=== PATIENT | female | born 1955 | race Caucasian/White ===

== ENCOUNTER → 2024-07-09 | Outpatient (BNVA) | payer MEDICARE, BC, SELFPAY | END | disposition home or self-care (01) | PROVIDERS: PCP Nurse Practitioner Family; Referring Provider Nurse Practitioner Family; Visit Provider Urology | DX: N39.3 Stress incontinence (female) (male) (principal); R39.198 Other difficulties with micturition; Z87.442 Personal history of urinary calculi; Z80.3 Family history of malignant neoplasm of breast | CPT/HCPCS: 81003; 99212; G0463 ==

== ENCOUNTER 2024-08-05 10:10 | Day surgery (SDC) | payer MEDICARE, BC, SELFPAY ==
--- NOTE | 2024-08-04 06:49 | EKG_ITS ---
[facility] Test Date: 2024-08-04 Pat Name: IRAIDA BERNABE Department: Room: - Gender: Female Renal Medicine Physician: STUDENT : 1955 Requested By: Trey Bear Order Number: [id number] Reading MD: Trey Bear Measurements Intervals [place] Rate: 58 P: 160 TX: 145 QRS: 182 QRSD: 102 T: 170 QT: 402 QTc: 397 Interpretive Statements SINUS BRADYCARDIA ARM LEADS REVERSED Compared to ECG 09/25/2023 13:32:07 Sinus rhythm no longer present /store/S0/[id number]
[2024-08-04 11:23] VITALS: BMI 41.1
[2024-08-04 12:20] LABS: Alanine Aminotransferase 31 U/L (10-49); Albumin, Serum 4.4 gm/dL (3.4-4.8); Albumin/Globulin Ratio 1.3 (1.2-2.2); Alkaline Phosphatase 94 U/L (46-116); Anion Gap 8 (7-16); Aspartate Amino Transferase 37 U/L (0-34); BUN/Creatinine Ratio 23 Ratio (12-20); Bilirubin,Total 0.6 mg/dL (0.3-1.2); Blood Urea Nitrogen 18 mg/dL (9-23); Calcium 10.3 mg/dL (8.3-10.6); Calcium (Corrected) 10.3 mg/dL (8.5-10.1); Carbon Dioxide 26.6 mMol/L (20.0-31.0); Chloride 106 mMol/L (98-107); Creatinine (Component) 0.8 mg/dL (0.6-1.3); Globulin 3.3 gm/dL (2.3-3.5); Glucose 106 mg/dL (74-106); Osmolality,Calculated 283 (275-295); Potassium 4.6 mMol/L (3.4-5.1); Sodium 141 mMol/L (136-145); Total Protein 7.7 gm/dL (5.7-8.2); eGFR > 60 See Note
[2024-08-05] VITALS (8 sets, daily range): BP systolic 93–138; BP diastolic 63–83; PULSE 62–73; RESP 12–20; TEMP 36.8–37.1; O2SAT 97–100; BMI 40.8
--- NOTE | 2024-08-05 10:36 | CHAP ---
Prayed with patient.
[2024-08-05] MEDS: RINGERS LACTATED 1000 ML 1,000 ML 20 ML IV (10:53)
--- NOTE | 2024-08-05 13:33 | PD.SUROPNT ---
Date of Procedure 08/05/24 Pre Op Diagnosis Microscopic hematuria, recurrent urinary tract infection, slow urinary stream, Post Op Diagnosis Same plus changes of interstitial cystitis Procedure Cystoscopic examination Clifton dilation for diagnostic and therapeutic purposes, biopsy of bladder and fulguration Findings Interstitial cystitis Procedure Description Indication for procedure this is a 69-year-old female she is seen in urology office she has slow urinary stream and has history of recurrent urinary tract infection microscopic hematuria she was recommended above procedure procedure and complications were discussed with the patient in great detail informed consent is obtained The patient was brought to the operating room in a satisfactory condition after appropriate premedication was appropriately identified by surgeon and operating room staff site scope and indications of the procedure were reconfirmed with the patient she was put on the operating table in a spine position general anesthesia was given uneventfully patient was positioned in dorsolithotomy position The patient was prepped in a sterile manner. Local anesthetic was placed in the urethra. Cystoscopy was then performed. The urethra had no intrinsic lesions. Examination of the bladder revealed no evidence of cancerous lesions, papillary or polyp type, lesions or stones bladder was filled with 350 cc of water emptied cystoscopy was done again it showed satellite hemorrhages indicative of interstitial cystitis biopsy was obtained fulguration was carried out. Both ureters were putting out clear urineThe bladder was completely drained and the scope was removed. The patient tolerated the procedure well. Post-op instructions were given. The patient is to call the office should any problems occur. Follow-up appointment in urology office is given Anesthesia GETA Pathology / specimen Other (Bladder biopsy) Estimated Blood Loss 0.2 Condition Stable Disposition PACU Surgeon Delroy Petersen MD Surgical Staff Operation Date: 08/05/24 12:00 <No data on this case meets the specified criteria>
--- NOTE | 2024-08-05 13:55 | SUR.PHASEI ---
1330 Patient arrived to recovery resting comfortably, awake and talking with staff, breathing unlabored, vital signs stable, denies pain, lung sounds clear upon auscultation, bilateral radial pulses present when palpated, report received from Bashir WEST and Dr. Polanco
--- NOTE | 2024-08-05 14:03 | SUR.PHASEII ---
1403 Dr. Petersen at bedside talking with patient
--- NOTE | 2024-08-05 14:45 | SUR.PHASEII ---
1445 Patient meets discharge criteria from recovery from recovery, awake and alert, breathing unlabored, vital signs stable, denies pain, patient drinking apple juice and tolerating well, denies nausea, patient voided in the restroom prior to discharge, patient assisted with dressing into her clothing by this technical document writer, discharge instructions given to patient and patients son, son signed discharge instructions. Patient given all her belongings prior to discharge, transported via wheelchair and left in a private vehicle
== END 2024-08-05 14:45 | disposition home or self-care (01) ==
PROVIDERS: Anesthesiology; PCP Internal Medicine; Referring Provider Urology; Visit Provider Urology
PROC: 0T7B8ZZ Dilation of Bladder, Via Natural or Artificial Opening Endoscopic (ICD-10-PCS; CPT 52204; principal; 2024-08-05 11:45)
DX: N30.11 Interstitial cystitis (chronic) with hematuria (principal); Z87.440 Personal history of urinary (tract) infections; Z01.810 Encounter for preprocedural cardiovascular examination
CPT/HCPCS: 52204; 36415; 80053; 93005; A4217; A4649; J1580; J2250; J2405; J2704; J2765; J3010; J7120

== ENCOUNTER 2024-11-16 21:17 | Emergency (ER) | payer MEDICARE, SELFPAY ==
[2024-11-16 21:29] VITALS: PULSE 81; RESP 18; O2SAT 99; BMI 39.1
[2024-11-16 21:31] VITALS: BP 129/85; PULSE 70; RESP 18; TEMP 36.9; O2SAT 98
--- NOTE | 2024-11-16 21:38 | EKG_ITS ---
[facility] Test Date: 2024-11-16 Pat Name: IRAIDA BERNABE Department: Room: - Gender: Female Python Engineer: : 1955 Requested By: ED Temporary Provider Order Number: [id number] Reading MD: ED Temporary Provider Measurements Intervals [place] Rate: 69 P: 56 [place]: 162 QRS: 14 QRSD: 88 T: 37 QT: 373 QTc: 402 Interpretive Statements SINUS RHYTHM LOW QRS VOLTAGE IN PRECORDIAL LEADS [QRS DEFLECTION < 1.0 mV IN CHEST LEADS] Compared to ECG 08/04/2024 11:58:52 Low QRS voltage now present Sinus bradycardia no longer present /store/S0/[id number]/[id number]
--- NOTE | 2024-11-16 22:17 | EDNOTE_ITS ---
ED Chest Pain RME/HPI General Chief Complaint: Chest Pain Stated Complaint: CHEST PAIN Time Seen by Provider: 11/16/24 22:17 Arrival date/time: 11/16/24 21:17 RME / HPI RME / HPI narrative: This section includes all my notes and documentations, including HPI, PE, and ED course. Rafal Hood MD HPI: 69yo female with no significant past medical history BIBA from home presents to the ED for a chief complaint of chest pain x 2 hours. Patient states she's been under a lot of stress recently due to the loss of her son, reporting she received his ashes today and was not expecting it. She states she's felt anxious tonight when she started having chest pain. She endorses also having jaw pain that radiates to her left arm. She denies any cough, fever, chills or any other associated symptoms. EMS administered sublingual nitroglycerin and aspirin en route. Patient states she is currently pain-free. She is not on any oxygen at home. No other complaints reported. ROS: All negative except as documented in HPI. Physical Exam: General: Alert and oriented. Appears anxious. Eyes: Conjunctivae and lids clear. ENT: No nasal congestion. Neck: Supple. Heart: RRR. Lungs: No respiratory distress. Good air movement. No rhonchi, wheezing, rales. Abdomen: Soft and nontender. Legs: No clubbing, cyanosis, edema. Skin: Warm and dry. Neuro: Alert and oriented X 3. I reviewed all diagnostic test results. My interpretation of the EKG is sinus rhythm with no acute ST?T changes. My interpretation of the chest x-ray is no acute findings. Blood tests unremarkable. At this point, diagnoses include chest pain, from grief. Treatment here included Xanax. Significant improvement noted. Recommend a more outpatient cardiac workup. Based on my best medical judgment, made decision no further evaluation or treatment indicated at this time. Patient understands and agrees to the discharge instructions customized and printed, see below. Discharge instructions from Dr. Hood: 1. After extensive evaluation, there is no life-threatening condition. Such as heart attack or pulmonary embolism (blood clots in your lungs) or pneumothorax (collapsed lung). 2. Your symptoms may be due to underlying stress or anxiety or nerves. This is fairly common. 3. Take Xanax as needed. Whether this helps or not will be valuable information to your private doctors. 4. See a private doctor next week. To make sure there is no serious underlying heart condition, ask to help you get more tests for your heart that cannot be done here in the ER. Such as Holter Monitor (cardiac monitoring at home from a day to even a month), heart stress test (on treadmill or with medication), echocardiogram (imaging of your heart structures), heart catherization (checking for blockages in your heart arteries), and a referral to see a Biophysics Scientist. 5. Seek immediate medical care with worsening or with any concerns. We are very, very sorry about what happened to your son. Please hang in there. Rafal Hood MD Related Data Home Medications ?Medication ?Instructions ?Recorded ?Confirmed levothyroxine 50 mcg capsule 50 mcg PO QDAY 07/09/24 1 10/05/23 Previous Rx's ?Medication ?Instructions ?Recorded phenazopyridine 100 mg tablet 100 mg PO TID PRN pain # 10 tabs 08/05/24 (Pyridium) alprazolam 0.5 mg tablet (Xanax) 0.5 mg PO BID PRN anx iety #10 tabs 11/16/24 Allergies Allergy/AdvReac Type Severity Reaction Status Date / Time latex Allergy Severe blisters Verified 08/05/24 13:46 tramadol (From Ultram) Allergy Severe Chest Pain Verified 08/05/24 13:46 erythromycin base (From Allergy Mild itching Verified 08/05/24 13:46 Erythrocin) Tetracyclines Allergy Mild itching Verified 08/05/24 13:46 morphine Allergy Verified 08/05/24 13:46 Review of Systems Review of Systems Systems Reviewed: All systems reviewed, normal except as documented Past Medical History Past Medical History NEUROLOGIC: Negative Neurological Disorders or Seizures CARDIAC: Negative Cardiac Disorders or Congestive Heart Failure RESPIRATORY: Negative Chronic Obstructive Pulmonary Disease (COPD) GASTROINTESTINAL: Positive Gastrointestinal Disorders and Obesity GENITOURINARY: Positive Genitourinary Disorders and Kidney Stones; Negative Renal Disease REPRODUCTIVE: Positive Previous Pregnancies MUSCULOSKELETAL: Positive Musculoskeletal Disorders and Osteoporosis ENT: Positive Cataracts ENDOCRINE: Negative Endocrine Disorders, Diabetes Mellitus Type 1 or Diabetes Mellitus Type 2 HEMATOLOGIC: Negative Blood Disorders OTHER HISTORY: Positive Hospitalization and Shingles; Negative Autoimmune Disease, Blood Transfusions, Blood Transfusion Reaction, Anesthesia Reactions or Cancer Family History FAMILY HISTORY: Positive Family Cardiac Disorders, Family Cancer and Family Surgery; Negative Family Psychiatric Problems, Family Respiratory Disorders, Family Gastrointestinal Problems or Family Anesthesia Reaction Surgical History SURGICAL: Positive Hysterectomy Social History SMOKING STATUS: Never smoker ED Exam Narrative Physical exam: As noted in HPI. Course Course Course Narrative: CXR is ordered for determining the etiology of chest pain. Quality Measures none Orders Category Date Time Status EKG (ED ONLY) *Do not use* NOW Care 11/16/24 21:39 Completed EKG (ED Only) Stat Exams 11/16/24 21:38 Draft XR chest 1V portable Stat Exams 11/16/24 22:18 Completed CBC Stat Lab 11/16/24 22:30 Completed CMP [Comprehensive Metabolic Panel] Stat Lab 11/16/24 22:30 Completed Magnesium Stat Lab 11/16/24 22:30 Completed TSH [Thyroid Stimulating Hormone] Stat Lab 11/16/24 22:30 Completed Troponin I Stat Lab 11/16/24 22:30 Completed ALPRazoLAM [Xanax] Med 11/16/24 22:18 Discontinued 0.25 mg PO X1 ONE Vital Signs Vital signs: Vital Signs Temperature 98.4 F 11/16/24 21:31 Pulse Rate 70 11/16/24 21:31 Respiratory Rate 18 11/16/24 21:31 Blood Pressure 129/85 H 11/16/24 21:31 Pulse Oximetry (%) 98 11/16/24 21:31 Oxygen Delivery Method Room Air 11/16/24 21:31 Chest Pain MDM Narrative [facility] Narrative:: Scribe Attestation: 11/16/24 - Olivia aJcinto am scribing for and in the presence of Dr. Hood. Patient data External records reviewed:: [facility] previous records (Per chart review, patient was seen here on 08/13/22 for COVID-19.) Clinical information provided by:: patient Social determinants that could affect healthcare access:: none Patient has the following chronic illnesses:: none How is presenting disease/condition affected by chronic disease/condition?: no chronic disease Evaluation data The following diagnostics were reviewed and interpreted by me:: lab results, radiology exam(s) and EKG tracing(s) Lab and/or radiology exams considered but not ordered:: none Interpretation Summary: Normal diagnostics. Medications / Prescriptions Medications or Prescriptions considered but not ordered:: none Medication administrations:: Medication Administration History Discontinued Medications Alprazolam (Alprazolam 0.25 Mg Tablet) 0.25 mg PO X1 ONE Stop: 11/16/24 22:19 Last Admin: 11/16/24 23:03 Dose: 0.25 mg Documented By: KG Xanax Consultations Consultation(s) initiated? (list below): No Diagnosis Chest Pain Differential Diagnosis: pneumothorax, stable angina, unstable angina pectoris, atypical chest pain, st elevation myocardial infarction, costochondritis and other (Anxiety, grief) Most likely diagnosis given after review of the tests above:: Chest pain from grief Admission Indicated Admission indicated?: not indicated Explain why admission is indicated or not indicated:: No criteria for admission. Admission Request Was there a request for admission?: No Disposition Plan Disposition Plan: Discharge Discharge Attestation Discharge Attestation: The patient and all family members were given an opportunity to ask questions and understood the discharge instructions. Discharge instructions specifically effects, indications for sooner follow up or return to the emergency department, and the expected course of current diagnosis. Patient condition: Stable Discharge Plan Plan Patient Disposition: HOME (Self Care) Prescriptions/Referrals Prescriptions/Med Rec: New alprazolam [Xanax] 0.5 mg tablet 0.5 mg PO BID PRN (Reason: anxiety) Qty: 10 0RF No Action levothyroxine 50 mcg capsule 50 mcg PO QDAY phenazopyridine [Pyridium] 100 mg tablet 100 mg PO TID PRN (Reason: pain) Qty: 10 0RF Referrals: Yousif Witt [Primary Care Provider] - In 1 week Problem List Clinical Impression: Chest pain Patient/Caregiver Discharge Instructions Discharge Activity: activity as tolerated Education Materials: ED Grief Reaction Additional Instructions: Discharge instructions from Dr. Hood: 1. After extensive evaluation, there is no life-threatening condition.? Such as heart attack or pulmonary embolism (blood clots in your lungs) or pneumothorax (collapsed lung). 2. Your symptoms may be due to underlying stress or anxiety or nerves.? This is fairly common. 3. Take Xanax as needed.? Whether this helps or not will be valuable information to your private doctors. 4. See a private doctor next week. To make sure there is no serious underlying heart condition, ask to help you get more tests for your heart that cannot be done here in the ER.? Such as Holter Monitor (cardiac monitoring at home from a day to even a month), heart stress test (on treadmill or with medication), echocardiogram (imaging of your heart structures), heart catherization (checking for blockages in your heart arteries), and a referral to see a Biophysics Scientist. 5. Seek immediate medical care with worsening or with any concerns.?? We are very, very sorry about what happened to your son. Please hang in there. Print Language: Belarusian Stand Alone Forms: Т[employer] Award Info., Patient Portal Info Letter
--- NOTE | 2024-11-16 22:18 | XR_ITS ---
Examination: AP chest single view Technique AP portable upright chest single view Standing spine: November 16, [id number] hours Comparison November 18, 2023 INDICATION: Shortness of breath today FINDINGS: Normal heart size. Lungs are clear. The osseous structures are intact IMPRESSION: No active disease
[2024-11-16 22:43] LABS: Basophils % (Auto) 0 % (0-2.5); Eosinophils # (Auto) 0.2 Thou/mm3 (0.0-0.5); Eosinophils % (Auto) 3 % (0-10); Hematocrit 35.6 % (36.0-46.0); Hemoglobin 11.6 g/dL (12.0-16.0); Immature Granulocytes % (Auto) 0 % (0-0); Immature Granulocytes Auto 0.03 Thou/mm3 (0.00-0.00); Lymphocytes % (Auto) 25 % (10-50); Mean Corpuscular HGB Conc 32.6 g/dl (31.0-37.0); Mean Corpuscular Hemoglobin 29.1 pg (25.0-35.0); Mean Corpuscular Volume 89 fL (80-100); Monocytes # (Auto) 0.8 Thou/mm3 (0.0-0.8); Monocytes % (Auto) 10 % (0-12); Neutrophils # (Auto) 5.1 Thou/mm3 (1.8-7.7); Neutrophils % (Auto) 62 % (37-80); Nucleated Red Blood Cell % 0 /100 WBC (0); Platelet Count 177 Thou/mm3 (140-440); RDW Standard Deviation 43.7 fL (36.4-46.3); Red Blood Count 3.99 Miln/mm3 (4.00-5.20); White Blood Count 8.2 Thou/mm3 (3.6-11.0)
[2024-11-16] MEDS: ALPRazoLAM 0.25 MG TABLET PO (23:03)
[2024-11-16 23:05] VITALS: BP 155/88; PULSE 70; RESP 18; O2SAT 100
[2024-11-16 23:06] LABS: Alanine Aminotransferase 19 U/L (10-49); Albumin, Serum 3.9 gm/dL (3.4-4.8); Albumin/Globulin Ratio 1.4 (1.2-2.2); Alkaline Phosphatase 80 U/L (46-116); Anion Gap 9 (7-16); Aspartate Amino Transferase 26 U/L (0-34); BUN/Creatinine Ratio 17 Ratio (12-20); Bilirubin,Total 0.3 mg/dL (0.3-1.2); Blood Urea Nitrogen 17 mg/dL (9-23); Calcium 9.5 mg/dL (8.3-10.6); Calcium (Corrected) 9.6 mg/dL (8.5-10.1); Carbon Dioxide 26.5 mMol/L (20.0-31.0); Chloride 110 mMol/L (98-107); Estimated Creatinine Clearance 64.4 mL/min (>60); Globulin 2.7 gm/dL (2.3-3.5); Glucose 105 mg/dL (74-106); Osmolality,Calculated 290 (275-295); Potassium 3.8 mMol/L (3.4-5.1); Sodium 145 mMol/L (136-145); Thyroid Stimulating Hormone 4.39 uIU/mL (0.55-4.78); Total Protein 6.6 gm/dL (5.7-8.2); Troponin I < 0.002 ng/mL (0.0-0.045); eGFR > 60 See Note
[2024-11-16 23:52] VITALS: BP 123/88; PULSE 74; RESP 16; TEMP 36.8; O2SAT 98
== END 2024-11-16 23:56 | disposition home or self-care (01) ==
PROVIDERS: Emergency Provider Emergency Medicine; PCP Internal Medicine
DX: R07.9 Chest pain, unspecified (principal); R68.84 Jaw pain
CPT/HCPCS: 36415; 71045; 80053; 83735; 84443; 84484; 85025; 93005; 99283; A9270

== ENCOUNTER → 2024-12-03 | Outpatient (BNVA) | payer MEDICARE, BC, SELFPAY | END | disposition home or self-care (01) | PROVIDERS: PCP Nurse Practitioner Family; Referring Provider Nurse Practitioner Family; Visit Provider Nurse Practitioner Family | DX: R42 Dizziness and giddiness (principal) | CPT/HCPCS: 82948; 85018; 93005; 99214 ==

== ENCOUNTER → 2025-01-04 | Outpatient (BNVA) | payer MEDICARE, BC, SELFPAY | END | disposition home or self-care (01) | PROVIDERS: PCP Internal Medicine; Referring Provider Internal Medicine; Visit Provider Urology | DX: G89.4 Chronic pain syndrome (principal); R10.2 Pelvic and perineal pain; N39.3 Stress incontinence (female) (male); Z80.3 Family history of malignant neoplasm of breast; E66.9 Obesity, unspecified; Z68.41 Body mass index [BMI] 40.0-44.9, adult; Z87.442 Personal history of urinary calculi | CPT/HCPCS: 81003; 99212; G0463 ==

== ENCOUNTER 2025-01-29 11:25 | Emergency (ER) | payer MEDICARE, BC, SELFPAY ==
[2025-01-29 11:51] VITALS: BP 115/64; PULSE 60; RESP 20; TEMP 36.6; O2SAT 99; BMI 39.4
--- NOTE | 2025-01-29 11:54 | EDNOTE_ITS ---
ED Back Injury Pain RME/HPI General Chief Complaint: Back Pain/Injury Stated Complaint: SCIATICA PAIN Time Seen by Provider: 01/29/25 11:32 Source: patient Arrival date/time: 01/29/25 11:25 69-year-old female with no known medical history presents to the emergency room with a chief complaint of right hip pain that radiates down her right leg x 1 hour. Patient denies any trauma or fall. Mode of arrival: ambulatory Limitations: no limitations Related Data Home Medications ?Medication ?Instructions ?Recorded ?Confirmed levothyroxine 50 mcg capsule 50 mcg PO QDAY 07/09/24 0 01/04/25 Allergies Allergy/AdvReac Type Severity Reaction Status Date / Time latex Allergy Severe blisters Verified 01/29/25 11:27 tramadol (From Ultram) Allergy Severe Chest Pain Verified 01/29/25 11:27 erythromycin base (From Allergy Mild itching Verified 01/29/25 11:27 Erythrocin) Tetracyclines Allergy Mild itching Verified 01/29/25 11:27 morphine Allergy Verified 01/29/25 11:27 Review of Systems Review of Systems Systems Reviewed: All systems reviewed, normal except as documented Constitutional Constitutional: Reports system reviewed and no additional complaints, except as documented, Denies fatigue, Denies fever(s), Denies headache(s) and Denies weakness Eyes Eyes: Reports system reviewed and no additional complaints, except as documented, Denies blurry vision and Denies change in vision ENT Ears, Nose, Mouth, and Throat: Reports system reviewed and no additional complaints, except as documented, Denies otalgia, Denies headache(s), Denies nasal congestion, Denies throat swelling and Denies vertigo Cardiovascular Cardiovascular: Reports system reviewed and no additional complaints, except as documented, Denies chest pain, Denies dyspnea and Denies dyspnea on exertion Respiratory Respiratory: Reports system reviewed and no additional complaints, except as documented, Denies chest congestion, Denies cough, Denies dyspnea, Denies dyspnea on exertion and Denies wheezing Gastrointestinal Gastrointestinal: Reports system reviewed and no additional complaints, except as documented, Denies abdominal pain, Denies cramping, Denies nausea and Denies vomiting Genitourinary Genitourinary: Reports system reviewed and no additional complaints, except as documented Musculoskeletal Musculoskeletal: Reports system reviewed and no additional complaints, except as documented, Reports arthralgias, Reports back pain and Reports radiating pain into limb Integumentary/Breasts Skin/Breast: Reports system reviewed and no additional complaints, except as documented and Denies wounds Neurologic Neurologic: Reports system reviewed and no additional complaints, except as documented, Denies confusion, Denies headache(s), Denies lack of coordination, Denies vertigo and Denies weakness Psychiatric Psychiatric: Reports system reviewed and no additional complaints, except as documented, Denies anxiety, Denies confusion, Denies depression, Denies paranoia, Denies suicidal ideation and Denies tactile hallucinations Endocrine Endocrine: Reports system reviewed and no additional complaints, except as documented and Denies fatigue Hematologic/Lymphatic Hematologic/Lymphatic: Reports system reviewed and no additional complaints, except as documented and Denies lymphadenopathy Allergic/Immunologic Allergic/Immunologic: Reports system reviewed and no additional complaints, except as documented, Denies throat swelling, Denies urticaria and Denies wheezing Past Medical History Past Medical History NEUROLOGIC: Negative Neurological Disorders or Seizures CARDIAC: Negative Cardiac Disorders or Congestive Heart Failure RESPIRATORY: Negative Chronic Obstructive Pulmonary Disease (COPD) GASTROINTESTINAL: Positive Gastrointestinal Disorders and Obesity GENITOURINARY: Positive Genitourinary Disorders and Kidney Stones; Negative Renal Disease REPRODUCTIVE: Positive Previous Pregnancies MUSCULOSKELETAL: Positive Musculoskeletal Disorders and Osteoporosis ENT: Positive Cataracts ENDOCRINE: Positive Endocrine Disorders and Hypothyroidism; Negative Diabetes Mellitus Type 1 or Diabetes Mellitus Type 2 HEMATOLOGIC: Negative Blood Disorders OTHER HISTORY: Positive Hospitalization and Shingles; Negative Autoimmune Disease, Blood Transfusions, Blood Transfusion Reaction, Anesthesia Reactions or Cancer Family History FAMILY HISTORY: Positive Family Cardiac Disorders, Family Cancer and Family Surgery; Negative Family Psychiatric Problems, Family Respiratory Disorders, Family Gastrointestinal Problems or Family Anesthesia Reaction Surgical History SURGICAL: Positive Hysterectomy Social History SMOKING STATUS: Never smoker ED Exam General Limitations: Present no limitations General appearance: Present alert and in no apparent distress Head Head exam: Present atraumatic Eye Eye exam: Present normal appearance, PERRL and EOMI ENT ENT exam: Present normal exam, normal oropharynx and mucous membranes moist Neck Neck exam: Present normal inspection, full ROM and trachea midline Chest Chest inspection: Present normal inspection and symmetric chest wall rise Respiratory Respiratory exam: Present normal lung sounds bilaterally Cardiovascular Cardiovascular exam: Present regular rate, normal rhythm and normal heart sounds Abdominal Exam Abdominal exam: Present soft and normal bowel sounds Extremities Exam Extremities exam: Present normal inspection and full ROM Back Exam Back exam: Present normal inspection, full ROM, vertebral tenderness and sciatic notch tenderness (R) Neurological Exam Neurological exam: Present alert, oriented X3 and CN II-XII intact Psychiatric Psychiatric exam: Present normal affect and normal mood Skin Skin exam: Present warm, dry, intact and normal color Course Quality Measures none Orders Category Date Time Status Ketorolac Inj [Toradol Inj] Med 01/29/25 11:54 Once 30 mg IM X1 ONE Vital Signs Vital signs: Vital Signs Temperature 97.8 F 01/29/25 11:51 Pulse Rate 60 01/29/25 11:51 Respiratory Rate 20 01/29/25 11:51 Blood Pressure 115/64 01/29/25 11:51 Pulse Oximetry (%) 99 01/29/25 11:51 Oxygen Delivery Method Room Air 01/29/25 11:51 O2 saturation 99% within normal limits Back Pain / Injury MDM Narrative MDM Narrative:: 69-year-old female with no known medical history presents to the emergency room with a chief complaint of right hip pain that radiates down her right leg x 1 hour. Patient denies any trauma or fall. Patient is hemodynamically stable and in no apparent distress. Physical examination shows tenderness to the patient's right hip that radiates down her right leg. Patient denies any trauma or fall. The patient denies any loss of bowel or bladder function. The patient denies any lumbar back pain numbness to the lower extremities or any saddle anesthesia. Pain medication was given to the patient patient was discharged as the findings are consistent with sciatica Patient was discharged and educated to follow-up with primary care provider in the next 24 to 48 hours and return to the emergency room for any evidence of worsening signs or symptoms Patient data External records reviewed:: [facility] previous records Clinical information provided by:: patient Social determinants that could affect healthcare access:: none Patient has the following chronic illnesses:: Hypothyroidism How is presenting disease/condition affected by chronic disease/condition?: no chronic disease Evaluation data The following diagnostics were reviewed and interpreted by me:: lab results and radiology exam(s) Lab and/or radiology exams considered but not ordered:: Labs and radiology exams considered and ordered Interpretation Summary: N/A Medications / Prescriptions Medications or Prescriptions considered but not ordered:: Medication given Medication administrations:: Medication Administration History Ketorolac Tromethamine (Ketorolac Inj 60 Mg/2 Ml Vial) 30 mg IM X1 ONE Stop: 01/29/25 11:55 Medication given Consultations Consultation(s) initiated? (list below): No Diagnosis Differential diagnosis back pain/injury: sciatica, strain of lumbar region and thoracic back pain Most likely diagnosis given after review of the tests above:: Sciatica Admission Indicated Admission indicated?: not indicated Admission Request Was there a request for admission?: No Disposition Plan Disposition Plan: Discharge Discharge Attestation Discharge Attestation: The patient and all family members were given an opportunity to ask questions and understood the discharge instructions. Discharge instructions specifically effects, indications for sooner follow up or return to the emergency department, and the expected course of current diagnosis. Patient condition: Stable Discharge Plan Plan Patient Disposition: HOME (Self Care) Discharge Disposition comment: Stable Prescriptions/Referrals Prescriptions/Med Rec: No Action levothyroxine 50 mcg capsule 50 mcg PO QDAY Problem List Clinical Impression: Sciatica Patient/Caregiver Discharge Instructions Education Materials: ED Sciatica Additional Instructions: Please follow-up with your primary care provider in the next 24 to 48 hours If the signs and symptoms continue a referral to PT/chiropractor/life insurance specialist is sometimes warranted. The referral will be made by your primary care provider For any evidence of worsening signs or symptoms return to the emergency room immediately Print Language: Irish Stand Alone Forms: Татьяна Award Info., Work/School Release, Patient Portal Info Letter
[2025-01-29] MEDS: KETOROLAC INJ 60 MG/2 ML VIAL 30 MG IM (12:15)
[2025-01-29 12:19] VITALS: BP 118/70; PULSE 70; RESP 18; TEMP 36.7; O2SAT 100
== END 2025-01-29 12:21 | disposition home or self-care (01) ==
LOC: SERX 12:07
PROVIDERS: Emergency Provider Emergency Medicine; PCP Internal Medicine
DX: M54.31 Sciatica, right side (principal)
CPT/HCPCS: 96372; 99283; J1885

== ENCOUNTER 2025-01-30 13:37 | Emergency (ER) | payer MEDICARE, BC, SELFPAY ==
[2025-01-30 13:44] VITALS: BP 166/104; PULSE 69; RESP 20; TEMP 37.2; O2SAT 98; BMI 39.4
--- NOTE | 2025-01-30 13:47 | XR_ITS ---
Examination: CT lumbar spine, without contrast. 2-D sagittal reconstructions. 2-D coronal reconstructions. 3-D reconstructions. Date and time of exam:January 30, 2025 1417 hrs. Indications: Patient fell today with injury to the lower back, lower back pain CTDI: vol (mGy):60.9 DLP: (mGycm):2087 Technique: Multiple 1.25 mm axial sections of the lumbar spine without intravenous contrast have been obtained. 2-D sagittal and coronal reconstructions have been obtained. 3-D reconstructions have been obtained. Low dose protocols were performed. One or more of the following dose reduction techniques were used; automated exposure control, adjustment of the mA and/or KV according to patient size, use of iterative reconstruction technique. Findings: Prominent osteopenia Moderate to advanced diffuse lumbar degenerative disc disease No acute lumbar vertebral body compression fracture Lumbar pedicles, laminae, transverse and posterior spinous processes intact Sacral segments intact L5-S1 3 mm central lumbar disc bulge L4-L5 3 mm central lumbar disc bulge L2-L3 calcified 3 mm central lumbar disc bulge Impression: No acute lumbar fracture
--- NOTE | 2025-01-30 13:48 | PD.EDRME ---
Rapid Medical Screening Exam E Arrival date/time: 01/30/25 13:37 69-year-old female presents to the emergency department day for complaint of right buttock pain radiating down her right leg Chief Complaint: Extremity Injury, Lower Vital signs: Vital Signs Temperature 99.0 F 01/30/25 13:44 Pulse Rate 69 01/30/25 13:44 Respiratory Rate 20 01/30/25 13:44 Blood Pressure 166/104 H 01/30/25 13:44 Pulse Oximetry (%) 98 01/30/25 13:44 Oxygen Delivery Method Room Air 01/30/25 13:44
[2025-01-30 14:02] LABS: Basophils % (Auto) 0 % (0-2.5); Eosinophils # (Auto) 0.1 Thou/mm3 (0.0-0.5); Eosinophils % (Auto) 2 % (0-10); Hematocrit 39.1 % (36.0-46.0); Hemoglobin 13.4 g/dL (12.0-16.0); Immature Granulocytes % (Auto) 1 % (0-0); Immature Granulocytes Auto 0.05 Thou/mm3 (0.00-0.00); Lymphocytes # (Auto) 1.6 Thou/mm3 (1.0-4.8); Lymphocytes % (Auto) 19 % (10-50); Mean Corpuscular HGB Conc 34.3 g/dl (31.0-37.0); Mean Corpuscular Hemoglobin 29.4 pg (25.0-35.0); Mean Corpuscular Volume 86 fL (80-100); Monocytes # (Auto) 0.8 Thou/mm3 (0.0-0.8); Monocytes % (Auto) 9 % (0-12); Neutrophils # (Auto) 5.7 Thou/mm3 (1.8-7.7); Neutrophils % (Auto) 69 % (37-80); Nucleated Red Blood Cell % 0 /100 WBC (0); Platelet Count 229 Thou/mm3 (140-440); RDW Standard Deviation 41.2 fL (36.4-46.3); Red Blood Count 4.56 Miln/mm3 (4.00-5.20); White Blood Count 8.3 Thou/mm3 (3.6-11.0)
[2025-01-30 14:19] LABS: Alanine Aminotransferase 26 U/L (10-49); Albumin, Serum 4.2 gm/dL (3.4-4.8); Albumin/Globulin Ratio 1.6 (1.2-2.2); Alkaline Phosphatase 88 U/L (46-116); Anion Gap 13 (7-16); BUN/Creatinine Ratio 20 Ratio (12-20); Bilirubin,Total 0.7 mg/dL (0.3-1.2); Blood Urea Nitrogen 18 mg/dL (9-23); C-Reactive Protein 1.1 mg/dL (0.0-0.9); Calcium 9.4 mg/dL (8.3-10.6); Calcium (Corrected) 9.4 mg/dL (8.5-10.1); Carbon Dioxide 22.5 mMol/L (20.0-31.0); Chloride 110 mMol/L (98-107); Creatinine (Component) 0.9 mg/dL (0.6-1.3); Estimated Creatinine Clearance 69.4 mL/min (>60); Globulin 2.7 gm/dL (2.3-3.5); Glucose 120 mg/dL (74-106); Osmolality,Calculated 291 (275-295); Potassium 4.5 mMol/L (3.4-5.1); Sodium 145 mMol/L (136-145); Total Protein 6.9 gm/dL (5.7-8.2); eGFR > 60 See Note
[2025-01-30] MEDS: DIAZEPAM 5 MG TABLET 10 MG PO (14:57)
[2025-01-30] MEDS: HYDROcodone/APAP 5/325 TABLET 1 TAB PO ×2 (14:57→17:51)
[2025-01-30 16:10] VITALS: BP 163/82; PULSE 45; RESP 17; TEMP 36.5; O2SAT 99
--- NOTE | 2025-01-30 17:26 | PD.EDLOWEX ---
Lower Extremity Injury RME/HPI General Chief Complaint: Extremity Injury, Lower Stated Complaint: RIGHT LEG PAIN Time Seen by Provider: 01/30/25 17:26 Arrival date/time: 01/30/25 13:37 This is a 69-year-old female that comes in with complaints of right buttock pain that radiates down her leg. Patient states she has had this pain for the past 4 to 5 days now. Patient was seen here yesterday per patient and was given Toradol and this did not help her pain. Patient reports history of hypothyroidism RME / HPI RME / HPI Narrative: 01/30/25 13:37 69-year-old female presents to the emergency department day for complaint of right buttock pain radiating down her right leg Related Data Home Medications ?Medication ?Instructions ?Recorded ?Confirmed levothyroxine 50 mcg capsule 50 mcg PO QDAY 07/09/24 01/04/25 Previous Rx's ?Medication ?Instructions ?Recorded cyclobenzaprine 5 mg tablet 5 mg PO BID #20 tabs 01/30/25 hydrocodone 5 mg-acetaminophen 325 1 tab PO Q8H PRN pain #8 tabs 01/30/25 mg tablet ibuprofen 800 mg tablet 800 mg PO Q6H PRN pain #14 tabs 01/30/25 Allergies Allergy/AdvReac Type Severity Reaction Status Date / Time latex Allergy Severe blisters Verified 01/29/25 11:27 tramadol (From Ultram) Allergy Severe Chest Pain Verified 01/29/25 11:27 erythromycin base (From Allergy Mild itching Verified 01/29/25 11:27 Erythrocin) Tetracyclines Allergy Mild itching Verified 01/29/25 11:27 morphine Allergy Verified 01/29/25 11:27 Course Orders Category Date Time Status CT lumbar spine wo con Stat Exams 01/30/25 13:47 Completed CBC Stat Lab 01/30/25 13:56 Completed CMP [Comprehensive Metabolic Panel] Stat Lab 01/30/25 13:56 Completed CRP [C-Reactive Protein] Stat Lab 01/30/25 13:56 Completed Diazepam [Valium] Med 01/30/25 13:47 Discontinued 10 mg PO X1 ONE HYDROcodone*/APAP 5/325 [[place] 5/325] Med 01/30/25 13:47 Discontinued 1 tab PO X1 ONE HYDROcodone*/APAP 5/325 [[place] 5/325] Med 01/30/25 17:37 Discontinued 1 tab PO X1 ONE Ketorolac Inj [Toradol Inj] Med 01/30/25 17:39 Discontinued 30 mg IM X1 ONE Vital Signs Vital signs: Vital Signs Temperature 99.0 F 01/30/25 13:44 Pulse Rate 69 01/30/25 13:44 Respiratory Rate 20 01/30/25 13:44 Blood Pressure 166/104 H 01/30/25 13:44 Pulse Oximetry (%) 98 01/30/25 13:44 Oxygen Delivery Method Room Air 01/30/25 13:44 Extremity Injury, Lower MDM Narrative MDM Narrative:: ct lumbar spine: Findings: Prominent osteopenia Moderate to advanced diffuse lumbar degenerative disc disease No acute lumbar vertebral body compression fracture Lumbar pedicles, laminae, transverse and posterior spinous processes intact Sacral segments intact L5-S1 3 mm central lumbar disc bulge L4-L5 3 mm central lumbar disc bulge L2-L3 calcified 3 mm central lumbar disc bulge Impression: No acute lumbar fracture Labs unremarkable. Medications / Prescriptions Medication administrations:: Medication Administration History Discontinued Medications Hydrocodone Bitart/Acetaminophen (Hydrocodone/Apap 5/325 Tablet) 1 tab PO X1 ONE Stop: 01/30/25 13:48 Last Admin: 01/30/25 14:57 Dose: 1 tab Documented By: HARSHAD Hydrocodone Bitart/Acetaminophen (Hydrocodone/Apap 5/325 Tablet) 1 tab PO X1 ONE Stop: 01/30/25 17:38 Last Admin: 01/30/25 17:51 Dose: 1 tab Documented By: CHUCKY Diazepam (Diazepam 5 Mg Tablet) 10 mg PO X1 ONE Stop: 01/30/25 13:48 Last Admin: 01/30/25 14:57 Dose: 10 mg Documented By: HARSHAD Ketorolac Tromethamine (Ketorolac Inj 60 Mg/2 Ml Vial) 30 mg IM X1 ONE Stop: 01/30/25 17:40 Last Admin: 01/30/25 17:49 Dose: 30 mg Documented By: CHUCKY Discharge Plan Plan Patient Disposition: HOME (Self Care) Patient condition on transfer: Stable Prescriptions/Referrals Prescriptions/Med Rec: New hydrocodone-acetaminophen 5-325 mg tablet 1 tab PO Q8H MDD 3 PRN (Reason: pain) Qty: 8 0RF ibuprofen 800 mg tablet 800 mg PO Q6H PRN (Reason: pain) Qty: 14 0RF cyclobenzaprine 5 mg tablet 5 mg PO BID Qty: 20 0RF No Action levothyroxine 50 mcg capsule 50 mcg PO QDAY Referrals: Yousif Witt [Primary Care Provider] - In 1 week Problem List Clinical Impression: Back pain Patient/Caregiver Discharge Instructions Discharge Activity: activity as tolerated Education Materials: Sciatica, ED Back Pain (Acute or Chronic) Additional Instructions: Follow up with primary provider in 1-2 days. Come back to ED if symptoms change or worsen ct lumbar spine: Findings: Prominent osteopenia Moderate to advanced diffuse lumbar degenerative disc disease No acute lumbar vertebral body compression fracture Lumbar pedicles, laminae, transverse and posterior spinous processes intact Sacral segments intact L5-S1 3 mm central lumbar disc bulge L4-L5 3 mm central lumbar disc bulge L2-L3 calcified 3 mm central lumbar disc bulge Impression: No acute lumbar fracture Print Language: Thai Stand Alone Forms: Татьяна Award Info., Patient Portal Info Letter PA/CABINETMAKER HELPER Supervising Physician PA/CABINETMAKER HELPER Supervising Physician: true
[2025-01-30] MEDS: KETOROLAC INJ 60 MG/2 ML VIAL 30 MG IM (17:49)
[2025-01-30 18:13] VITALS: BP 161/81; PULSE 48; RESP 15; TEMP 36.5; O2SAT 97
[2025-01-30 18:40] VITALS: BP 161/80; PULSE 56; RESP 13; TEMP 36.8
== END 2025-01-30 18:40 | disposition home or self-care (01) ==
PROVIDERS: Nurse Practitioner Primary Care; Emergency Provider Family Medicine; PCP Internal Medicine
DX: S39.92XA Unspecified injury of lower back, initial encounter (principal); W19.XXXA Unspecified fall, initial encounter
CPT/HCPCS: 36415; 72131; 80053; 85025; 86140; 96372; 99284; J1885; A9270